=== PATIENT | male | born 1970 | race Caucasian/White ===

== ENCOUNTER → 2018-06-01 | Outpatient (CLI) | payer OTHER ==
[2018-06-01 16:45] LABS: BASOPHILS ABSOLUTE AUTO 0.07 K/mm3 (0.00-0.23); BASOPHILS PERCENT AUTO 1 % (0-2); EOSINOPHILS ABSOLUTE AUTO 0.36 K/mm3 (0.00-0.68); EOSINOPHILS PERCENT AUTO 3 % (0-6); Hematocrit 41.6 % (37.0-53.0); Hemoglobin 13.6 g/dL (13.5-17.5); IMMATURE GRAN ABSOLUTE AUTO 0.08 K/mm3 (0.00-0.10); IMMATURE GRAN PERCENT AUTO 1 % (0-1); LYMPHOCYTES ABSOLUTE AUTO 2.52 K/mm3 (0.84-5.20); LYMPHOCYTES PERCENT AUTO 24 % (21-46); MONOCYTES ABSOLUTE AUTO 0.92 K/mm3 (0.16-1.47); MONOCYTES PERCENT AUTO 9 % (4-13); Mean Corpuscular HGB 27.9 pg (26.0-34.0); Mean Corpuscular HGB Conc 32.7 g/dL (31.5-36.5); Mean Corpuscular Volume 85 fL (80-100); Mean Platelet Volume 9.7 fL (9.1-12.4); NEUTROPHILS ABSOLUTE AUTO 6.56 K/mm3 (1.96-9.15); NEUTROPHILS PERCENT AUTO 62 % (41-73); Platelet Count 339 K/mm3 (150-400); RDW Coefficient Variation 11.9 % (11.7-14.2); RDW Standard Deviation 37.2 fL (35.1-46.3); Red Blood Cell Count 4.87 M/mm3 (4.30-5.90); White Blood Cell Count 10.51 K/mm3 (4.00-11.30)
[2018-06-01 17:08] LABS: Alanine Aminotransfer (ALT/SGP 33 U/L (12-78); Albumin, Blood 3.9 g/dL (3.4-5.0); Alk Phos 70 U/L (50-136); Anion Gap 8 mmol/L (6-16); Aspartate Aminotrans (AST/SGOT 14 U/L (12-37); Bilirubin, Total 0.5 mg/dL (0.1-1.0); Blood Urea Nitrogen 13 mg/dL (8-24); Bun/Creatinine Ratio 14.6 (12.0-20.0); CO2, Blood 24 mmol/L (21-32); Calcium, Blood 8.7 mg/dL (8.5-10.1); Chloride, Blood 104 mmol/L (98-108); Creatinine, Blood 0.89 mg/dL (0.60-1.20); Globulin, Blood 4.1 g/dL (2.2-4.0); Glomerular Filtration Rate >60 (60-); Glucose, Blood 114 mg/dL (70-99); Potassium, Blood 4.1 mmol/L (3.5-5.5); Sodium, Blood 136 mmol/L (136-145)
== END | disposition home or self-care (01) ==
LOC: LAB SHORT 16:00 → LAB 16:00
PROVIDERS: Emergency Medicine
DX: R10.84 Generalized abdominal pain (principal)
CPT/HCPCS: 80053; 83690; 85025

== ENCOUNTER 2022-02-24 10:35 | Emergency (ER) | payer OTHER, BC ==
[~2022-02-24] VITALS: Ht 190.5 cm; Wt 103.0 kg
[2022-02-24] MEDS ORDERED: LEVSOD25 PO (11:13)
[2022-02-24] MEDS ORDERED: LISI20 PO (11:13)
[2022-02-24] MEDS ORDERED: AMLO5 PO (11:13)
[2022-02-24] MEDS ORDERED: METF500 PO (11:13)
[2022-02-24] MEDS ORDERED: ROSU10TA PO (11:13)
[2022-02-24] MEDS ORDERED: HYDR1TAB94 PO (13:16)
== END 2022-02-24 13:30 | disposition home or self-care (01) ==
LOC: ER 10:35
DX: S52.571A Other intraarticular fracture of lower end of right radius, initial encounter for closed fracture (principal); S52.614A Nondisplaced fracture of right ulna styloid process, initial encounter for closed fracture; E11.9 Type 2 diabetes mellitus without complications; I10 Essential (primary) hypertension; E03.9 Hypothyroidism, unspecified; W01.0XXA Fall on same level from slipping, tripping and stumbling without subsequent striking against object, initial encounter; Z79.890 Hormone replacement therapy; Z79.84 Long term (current) use of oral hypoglycemic drugs; Z79.899 Other long term (current) drug therapy
CPT/HCPCS: 29105; 73110; 96372-59; 99283-25; A9270; J1885

== ENCOUNTER 2022-03-01 11:17 | Day surgery (SDC) | payer BC ==
[~2022-03-01] VITALS: Ht 190.5 cm; Wt 106.4 kg
[~2022-03-01 11:17] MED LIST: AMLO5 PO; HYDR1TAB94 PO; LEVSOD25 PO; LISI20 PO; METF500 PO; ROSU10TA PO
--- NOTE | 2022-03-01 12:24 | NUR ---
History, Chart, Medications and Allergies reviewed before start of procedure. Lungs clear T/O to Auscultation. Patient confirms NPO status and agrees with scheduled surgery. Pre-Op teaching done. Pt verbalizes understanding. Patient States Post-Procedure ride home has been arranged.
--- NOTE | 2022-03-01 15:04 | NUR ---
Patient up to Ambulate independently. Gait steady. Discharge instructions reviewed with patient. Patient verbalizes understanding. Copy given to patient to take home, WELL . Patient States Post-Procedure ride home has been arranged. Discharged via wheelchair to private car for ride home. PT DRESSING C/D/I, ARM BEEN ELEVATED. PT REPORTS HAVING ICE PACKS AT HOME. PT REPORTS HAVING MULT PILLOWS AT HOME. PT ABLE TO WIGGLE FINGERS.CAP REFILL WNL.
== END 2022-03-01 15:04 | disposition home or self-care (01) ==
LOC: ORSCMMR 11:17 → ORD 12:30 → ORSCMMR 12:30
PROVIDERS: Orthopaedic Surgery
PROC: 0PSH36Z Reposition Right Radius with Intramedullary Internal Fixation Device, Percutaneous Approach (ICD-10-PCS; principal; 2022-03-01 13:30)
DX: S52.501A Unspecified fracture of the lower end of right radius, initial encounter for closed fracture (principal); E11.9 Type 2 diabetes mellitus without complications; I10 Essential (primary) hypertension; E78.5 Hyperlipidemia, unspecified; E07.9 Disorder of thyroid, unspecified; Z87.891 Personal history of nicotine dependence; Z79.82 Long term (current) use of aspirin; Z79.84 Long term (current) use of oral hypoglycemic drugs; Z79.899 Other long term (current) drug therapy
CPT/HCPCS: 82947; A9270; J0171; J0690; J1100; J1885; J2250; J2405; J2704; J3010; J7120